=== PATIENT | female | born 1940 | race Caucasian/White ===

== ENCOUNTER 2017-01-26 11:16 | Emergency (ER) | payer OTHER ==
[~2017-01-26] VITALS: Ht 152.4 cm; Wt 63.5 kg
[~2017-01-26 11:16] MED LIST: FIORIC PO; HYDR-3533 PO; LEXA5TAB PO; LORA-392 PO; OMEP20TA39 PO; PRAV20TA PO
[2017-01-26 11:21] VITALS: BP 140/83; PULSE 89; RESP 18; TEMP 98.3; O2SAT 98
[2017-01-26] MEDS ORDERED: PRAV10TA PO (11:35)
[2017-01-26] MEDS ORDERED: PRIL20CA9 PO (11:35)
[2017-01-26] MEDS ORDERED: BUSP5TAB PO (11:40)
--- NOTE | 2017-01-26 12:08 | PD ---
HPI Chief Complaint: Musculoskeletal Complaint Time Seen by Provider: 12:05 Travel History International Travel<30 days: No Contact w/Intl Traveler<30days: No Traveled to known affect area: No History of Present Illness HPI 76-year-old female with a history of hyperlipidemia presents to the emergency department for evaluation of right foot and ankle pain for 4 days status post trip and fall. Patient states that she was walking in her front yard carrying to plants when she actually tripped over a tree root and somehow injured her right ankle and foot. Denies head trauma or loss of consciousness. States that she's had swelling and bruising in her right foot and ankle since this occurred. Pain has been aggravated with weightbearing. Improved with rest however she does have pain at rest. Denies any numbness or tingling, weakness, fever, chills, nausea, vomiting. Denies anticoagulation. She has been taking ibuprofen with minimal improvement of symptoms. No other complaints. 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) Musculoskeletal: Yes (RIGHT SHOULDER/POSSIBLY ROTOR CUFF) Immunizations Current: No Migraines: Yes Menopausal: Yes Past Surgical History Appendectomy: Yes Social History Alcohol Use: No Tobacco Use: No (Quit 23 years ago) Substance Use: No Allergies-Medications (Allergen,Severity, Reaction): Coded Allergies: Macrobid (Verified Allergy, Severe, rash, 01/26/17) Penicillin (Verified Allergy, Severe, "COULDN'T BREATHE", 01/26/17) Shellfish (Verified Allergy, Severe, "COULDN'T BREATHE", 01/26/17) Reported Meds & Prescriptions Reported Meds & Active Scripts Active Reported Buspirone (Buspirone HCl) 5 Mg Tab 5 Mg PO BID Pravastatin 10 Mg Tab 10 Mg PO DAILY Prilosec (Omeprazole) 20 Mg Cap 20 Mg PO DAILY Review of Systems Except as stated in HPI: all other systems reviewed are Neg Physical Exam Narrative GENERAL: Well-nourished and well-developed pleasant patient in no acute distress who is nontoxic appearing. SKIN: Warm and dry. HEAD: Normocephalic and atraumatic. EYES: No injection, drainage, or hyphema noted. PERRLA. EOMI. ENT: No nasal drainage noted. Oropharynx is clear. NECK: Supple and the trachea is midline. CARDIOVASCULAR: Regular rate and rhythm. RESPIRATORY: Breath sounds are equal bilaterally with no accessory muscle use, wheezing, rhonchi, or crackles. GASTROINTESTINAL: Abdomen is soft, non-tender, and nondistended. MUSCULOSKELETAL: The right ankle and foot is swollen with ecchymosis over her dorsal, medial and lateral aspects. Tenderness to palpation. DP pulses are 2+ bilaterally. The foot and toes are warm and well-perfused. Sensation to pain and light touch is intact. No obvious deformities or cyanosis is present throughout the upper and lower extremities. Patient has full range of motion without any signs of neurovascular compromise. NEUROLOGICAL: Awake, alert, and oriented. Normal speech and gait. Cranial nerves are grossly intact. Data Data Last Documented VS Vital Signs Date Time Temp Pulse Resp B/P Pulse Ox O2 Delivery O2 Flow Rate FiO2 01/26/17 11:21 98.3 89 18 140/83 98 Orders Ankle, Complete ([id number]) (01/26/17 12:04) Foot, Complete ([id number]) (01/26/17 12:04) Splint Or Brace Apply/Monitor (01/26/17 13:26) MDM Medical Decision Making Medical Screen Exam Complete: Yes Emergency Medical Condition: Yes Differential Diagnosis Fracture versus sprain versus contusion Narrative Course 76-year-old female presents to the emergency department for evaluation of right foot and ankle pain status post trip and fall over a root in her yard. No tremor loss of consciousness. Patient is afebrile, vital signs are stable. Patient's right lower extremity is neurovascularly intact. There is swelling and ecchymosis. X-ray imaging has been ordered and is pending. X-ray of the right foot shows degenerative changes but no acute abnormalities or fractures. X-ray of the right ankle is negative for any acute fracture or abnormality. The patient is placed in an Jagdeep wrap. She'll be given tramadol for pain. Discussed supportive care. Advised follow-up with her PCP. Patient verbalizes understanding and agreement with treatment plan. Diagnosis Primary Impression: Right foot sprain Qualified Code: S93.601A - Right foot sprain, initial encounter Referrals: Primary Care Physician Patient Instructions: Foot Sprain (ED), General Instructions Additional Instructions: Jagdeep wrap. Elevate. Rest. Apply ice for 20 minutes on, 20 minutes off. Take medication as prescribed. Do not take tramadol with alcohol or while driving. Follow-up with your Primary Care Physician. Return to the ED for any acute worsening of symptoms. Med/Other Pt SpecificInfo: Prescription(s) given Scripts Tramadol 50 Mg Tab50 Mg PO Q6H PRN (PAIN GREATER THAN 6) #20 TAB Ref 0 Prov:Eddie Flynn MD 01/26/17 Disposition: 01 DISCHARGE HOME Condition: Stable Ruby Berg Jan 26, 2017 12:08
--- NOTE | 2017-01-26 13:20 | RADHPO ---
EXAM DATE/TIME: 01/26/2017 12:30 [facility] COMPARISON: No previous studies available for comparison. INDICATIONS : Right foot pain/swelling/bruising post fall. MEDICAL HISTORY : Hypercholesterolemia. SURGICAL HISTORY : Appendectomy. Right shoulder. Right knee. Left ankle. ENCOUNTER: Initial ACUITY: 4 - 6 days PAIN SCORE: 7/10 LOCATION: Right foot FINDINGS: Three views of the right foot demonstrate no fracture or dislocation. The Lisfranc joint appears inta ct. 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 No soft tissue abnormality or radiopaque foreign body is identified. CONCLUSION: No acute right foot abnormality is identified. There is severe osteoarthritis at the first MTP joint. Az Huang MD on January 26, 2017 at 13:17 Board Certified Radiologist. This report was verified electronically.
--- NOTE | 2017-01-26 13:23 | RADHPO ---
EXAM DATE/TIME: 01/26/2017 12:26 [facility] COMPARISON: FOOT RIGHT COMPLETE ([id number]), January 26, 2017, 12:30. INDICATIONS : Right ankle pain/swelling/bruising post fall. MEDICAL HISTORY : Hypercholesterolemia. SURGICAL HISTORY : Appendectomy. Right shoulder. Right knee. Left ankle. ENCOUNTER: Initial ACUITY: 1 day PAIN SCORE: 7/10 LOCATION: Right ankle FINDINGS: There is moderate largely lateral soft tissue swelling without evidence of underlying fracture or dis location. Visualized hind foot appears intact. CONCLUSION: Soft tissue swelling. No definite fracture. Az Gonzalez MD on January 26, 2017 at 13:18 Board Certified Radiologist. This report was verified electronically.
[2017-01-26] MEDS ORDERED: TRAM50TA PO (13:27)
== END 2017-01-26 13:50 | disposition home or self-care (01) ==
LOC: PHEFT 11:16
DX: S93.601A Unspecified sprain of right foot, initial encounter (principal); W01.0XXA Fall on same level from slipping, tripping and stumbling without subsequent striking against object, initial encounter; Y93.01 Activity, walking, marching and hiking; Y92.017 Garden or yard in single-family (private) house as the place of occurrence of the external cause; Y99.8 Other external cause status
CPT/HCPCS: 73610; 73630; 99283

== ENCOUNTER 2018-07-12 15:33 | Observation (INO) ==
--- NOTE | 2018-07-12 16:05 | ED ---
HPI General Chief Complaint: Shortness of Breath/Dyspnea Stated Complaint: Sob Time Seen by Provider: 07/12/18 15:52 History of Present Illness The patient was seen and examined in the presence of the nurse. This patient has had dyspnea with exertion for a month. She has been working with her primary physician Dr. Barboza. She has had x-ray and EKG a couple of weeks ago she reports were negative. She had an appointment today and she was sent here to get stress testing. She does not have documented cardiac disease. However she is on cholesterol medication and an ex smoker. Has not had any chest pain or pressure or tightness or heaviness. Denies cough or fever. She is not short of breath now. No pleuritic symptoms. Severity is mild to moderate. It is worse with exertion. Symptoms alleviated with rest. Related Data Home Medications Medication Instructions Recorded Confirmed buspirone 5 mg PO BID 07/12/18 07/12/18 escitalopram oxalate [Lexapro] 20 mg PO DAILY 07/12/18 07/12/18 omeprazole magnesium [Prilosec OTC] 20 mg PO DAILY 07/12/18 07/12/18 pravastatin 1 tab PO DAILY 07/12/18 07/12/18 tramadol [Ultram] 50 mg PO Q4-6H PRN 07/12/18 07/12/18 Allergies Allergy/AdvReac Type Severity Reaction Status Date / Time nitrofurantoin Allergy Severe rash Verified 07/12/18 15:48 penicillin G Allergy Severe "COULDN'T Verified 07/12/18 15:48 BREATHE" shellfish derived Allergy Severe "COULDN'T Verified 07/12/18 15:48 BREATHE" Review of Systems ROS: all other systems reviewed are negative PMFSH Medical History Medical History Anxiety (Acute) Arthritis (Acute) Depression (Acute) Hiatal hernia (Acute) High cholesterol (Acute) Surgical History Surgical History History of ankle surgery (Acute) Social History Social History Substance History: No History of Abuse Second Hand Smoke Exposure: No Smoking Status: Former smoker How Often Do You Have a Drink Containing Alcohol: Never Recent Travel in [facility] within the Last 8 Weeks: No Recent Out of Country Travel within the Last 8 Weeks: No Immunization History Tetanus Immunization: Unsure Hx Influenza Vaccine This Season: No Exam Narrative Exam Narrative: GENERAL: Well-nourished, well-developed patient in no apparent distress. SKIN: Focused skin assessment reveals no rash and nodules. Skin is Warm and dry. HEAD: Atraumatic. Normocephalic. EYES: Pupils equal and round. No scleral icterus. No injection or drainage. ENT: No nasal bleeding or discharge. Mucous membranes pink and moist. NECK: Trachea midline. No JVD. CARDIOVASCULAR: Regular rate and rhythm. No murmur appreciated. RESPIRATORY: No accessory muscle use. Clear to auscultation. Breath sounds equal bilaterally. GASTROINTESTINAL: Abdomen soft, non-tender, nondistended. Hepatic and splenic margins not palpable. MUSCULOSKELETAL: No obvious deformities. No clubbing. No cyanosis. No edema. NEUROLOGICAL: Awake and alert. No obvious cranial nerve deficits. Motor grossly within normal limits. Normal speech. PSYCHIATRIC: Appropriate mood and affect; insight and judgment normal. Course Initial Documented Vital Signs Temperature 97.7 F 07/12/18 15:35 Pulse Rate 112 H 07/12/18 15:35 Respiratory Rate 18 07/12/18 15:35 Blood Pressure 151/85 H 07/12/18 15:35 Pulse Oximetry 97 07/12/18 15:35 Last Documented Vital Signs Temperature 97.7 F 07/12/18 15:35 Pulse Rate 86 07/12/18 15:58 Respiratory Rate 18 07/12/18 15:58 Blood Pressure 150/79 H 07/12/18 15:58 Pulse Oximetry 97 07/12/18 16:09 Medical Decision Making MDM Narrative Medical decision making narrative: Initial ER workup is normal including labs and chest x-ray and EKG. She had an aspirin today. She is currently symptom- free. She does have multiple risk factors including elevated cholesterol and ex -smoker and age. Her physician wanted her in for stress testing. I have placed a call to the hospitalist to discuss for 23-hour observation in the chest pain center. Medical Screen Exam Complete: Yes Emergency Medical Condition: Yes Differential Diagnosis Differential Diagnosis: COPD, pneumonia, anginal variant Medical Records Medical records reviewed: Yes I reviewed the patient's medical records. Lab Data Lab results reviewed: Yes I reviewed the patient's lab results. Lab results narrative: Studies are normal including cardiac enzymes Result diagrams: 07/12/18 16:10 07/12/18 16:10 Lab Results 07/12/18 07/12/18 Range/Units 16:10 16:10 CBC w Diff Auto diff final WBC 6.5 (4.0-11.0) th/mm3 RBC 4.15 (4.00-5.30) mil/mm3 Hgb 12.8 (11.6-15.3) gm/dL Hct 37.8 (35.0-46.0) % MCV 91.3 (80.0-100.0) fL MCH 30.8 (27.0-34.0) pg MCHC 33.8 (32.0-36.0) % RDW 13.4 (11.6-17.2) % Plt Count 280 (150-450) th/mm3 MPV 8.2 (7.0-11.0) fL Neut % (Auto) 62.7 (16.0-70.0) % Lymph % (Auto) 23.8 (9.0-44.0) % [place] % (Auto) 10.1 H (0.0-8.0) % Eos % (Auto) 2.8 (0.0-4.0) % Baso % (Auto) 0.6 (0.0-2.0) % Neut # (Auto) 4.1 (1.8-7.7) th/mm3 Lymph # (Auto) 1.5 (1.0-4.8) th/mm3 [place] # (Auto) 0.7 (0.0-0.9) th/mm3 Eos # (Auto) 0.2 (0.0-0.4) th/mm3 Baso # (Auto) 0.0 (0.0-0.2) th/mm3 WBC Differential . Differential Comment . Sodium 142 (136-145) meq/L Potassium 3.6 (3.5-5.1) meq/L Chloride 105 (98-107) meq/L Carbon Dioxide 27.1 (21.0-32.0) meq/L Anion Gap 10 (5-15) meq/L BUN 17 (7-18) mg/dL Creatinine 1.00 (0.50-1.00) mg/dL Estimated GFR 54 L (>89) mL/min Random Glucose 96 (74-106) mg/dL Calcium 8.8 (8.5-10.1) mg/dL Total Bilirubin 0.2 (0.2-1.0) mg/dL AST 18 (15-37) U/L ALT 20 (10-53) U/L Alkaline Phosphatase 93 (45-117) U/L Total Creatine Kinase 76 (26-192) U/L Troponin I Less than 0.02 L (0.02-0.05) ng/mL Total Protein 7.4 (6.4-8.2) g/dL Albumin 3.8 (3.4-5.0) g/dL Imaging Data Attestation: I personally reviewed and interpreted this imaging study as follows : My impression: Chest x-ray is normal Radiologist's impression: Chest X-Ray 07/12/18 16:03 CONCLUSION: No acute cardiopulmonary findings identified. ECG Data EKG Prior to Arrival: No Attestation: I personally reviewed and interpreted this ECG as follows: Prior ECG tracings: not available for review Interpretation: EKG reveals sinus rhythm. The SC interval is normal. There are no ST elevations. Heart rate is normal Discharge Plan Discharge Disposition Patient Disposition: 30 Still Patient Discharge Details Diagnosis: BOUDREAUX (dyspnea on exertion) Physicians Team ED Provider: Maicol De La Rosa Primary Care Provider: Bret Barboza Rxs /Orders / Referrals /Forms Prescriptions: No Action buspirone 5 mg Tablet 5 mg PO BID RF: 0 tramadol [Ultram] 50 mg Tablet 50 mg PO Q4-6H PRN (Reason: Pain) RF: 0 pravastatin 20 mg Tablet 1 tab PO DAILY RF: 0 escitalopram oxalate [Lexapro] 20 mg Tablet 20 mg PO DAILY RF: 0 omeprazole magnesium [Prilosec OTC] 20 mg Tablet,Delayed Release (Dr/Ec) 20 mg PO DAILY RF: 0 Discharge Interventions Interventions: Vital Signs Last Done: 07/12/18 15:58 Status ED Status: With Doctor
[2018-07-12 16:16] LABS: Baso % (Auto) 0.6 % (0.0-2.0); Eos # (Auto) 0.2 th/mm3 (0.0-0.4); Eos % (Auto) 2.8 % (0.0-4.0); Hematocrit 37.8 % (35.0-46.0); Hemoglobin 12.8 gm/dL (11.6-15.3); Lymph # (Auto) 1.5 th/mm3 (1.0-4.8); Lymph % (Auto) 23.8 % (9.0-44.0); Mean Corpuscular HGB Conc 33.8 % (32.0-36.0); Mean Corpuscular Hemoglobin 30.8 pg (27.0-34.0); Mean Corpuscular Volume 91.3 fL (80.0-100.0); Mean Platelet Volume 8.2 fL (7.0-11.0); Mono # (Auto) 0.7 th/mm3 (0.0-0.9); Mono % (Auto) 10.1 % (0.0-8.0); Neut # (Auto) 4.1 th/mm3 (1.8-7.7); Neut % (Auto) 62.7 % (16.0-70.0); Platelet Count 280 th/mm3 (150-450); Red Blood Count 4.15 mil/mm3 (4.00-5.30); Red Cell Distribution Width 13.4 % (11.6-17.2); White Blood Count 6.5 th/mm3 (4.0-11.0)
[2018-07-12 16:21] LABS: Chloride 105 meq/L (98-107); Potassium 3.6 meq/L (3.5-5.1); Sodium 142 meq/L (136-145)
[2018-07-12 16:24] LABS: Calcium 8.8 mg/dL (8.5-10.1)
[2018-07-12 16:25] LABS: Albumin 3.8 g/dL (3.4-5.0); Anion Gap 10 meq/L (5-15); Blood Urea Nitrogen 17 mg/dL (7-18); Carbon Dioxide 27.1 meq/L (21.0-32.0); Glucose,Random 96 mg/dL (74-106)
--- NOTE | 2018-07-12 16:27 | XR ---
EXAM DATE: 07/12/2018 4:03 PM EDT AGE/SEX: 77 years / Female INDICATIONS: Chest pain. CLINICAL DATA: This is the patient's initial encounter. Patient reports that signs and symptoms have been present for 2 weeks and indicates a pain score of 5/10. MEDICAL/SURGICAL HISTORY: Hypercholesterolemia. . Appendectomy. Right shoulder. Right knee. Lef t ankle. COMPARISON: POI, XR CHEST PA AND LAT, 06/28/2018. . FINDINGS: The heart is at the upper limits of normal in size. The lungs are clear. The visualized bony structur es are grossly intact. The exam is unchanged compared to previous dated 06/28/2018. CONCLUSION: No acute cardiopulmonary findings identified. Electronically signed by: Miki Rivers MD 07/12/2018 4:25 PM EDT
[2018-07-12 16:28] LABS: Alanine Aminotransferase 20 U/L (10-53); Aspartate Aminotransferase 18 U/L (15-37); Glomerular Filtration Rate 54 mL/min (>89)
[2018-07-12 16:29] LABS: Total Protein 7.4 g/dL (6.4-8.2)
[2018-07-12 16:31] LABS: Alkaline Phosphatase 93 U/L (45-117)
[2018-07-12 16:41] LABS: Creatine Kinase 76 U/L (26-192)
[2018-07-12] MEDS ORDERED: Morphine Inj 4 MG/ML Vial IV.PUSH PRN (17:37)
[2018-07-12] MEDS ORDERED: Acetaminophen 500 MG Tablet PO PRN (17:37)
--- NOTE | 2018-07-12 17:52 | P.HP ---
History of Present Illness Primary Care Physician: Bret Barboza MD Chief Complaint: Shortness of breath History of Present Illness: 77-year-old female with known history of hyperlipidemia, hiatal hernia , arthritis who presented the hospital for evaluation of shortness of breath. Patient states that she has been experiencing dyspnea on exertion, shortness of breath for at least a month. She indicates that 2 weeks ago she started workup with her primary medical doctor which included chest x-ray and EKG which were unremarkable per the patient. She indicates that her prior medical doctor was referring her to a cable armorer operator for further evaluation and stress testing. However she has not heard anything back from the cable armorer operator at this time. Patient was out with her grandson and got short of breath and felt very uncomfortable so she came to the hospital for evaluation. Patient denies any chest pain, diaphoresis, she did experience some lightheadedness and dizziness with her shortness of breath today while she was with her grandson. She indicates that she has had a stress test approximately 10 years ago which was unremarkable. Patient has not had any pulmonary workup in the outpatient setting thus far. Patient also states that since December she has gained about 20 pounds which she also has a hiatal hernia. She states that she has been experiencing worsening shortness of breath since the increase weight gain. She is concerned that maybe the hiatal hernia can also be causing her shortness of breath and dyspnea. It was recommended by ER physician the patient be observed in the hospital with chest pain center for further evaluation and management. - Diagnosis (1) BOUDREAUX (dyspnea on exertion) Review of Systems All other systems reviewed negative except as stated in HPI Respiratory: Reports shortness of breath, Reports shortness of breath with activity PMFSH - History History Provided By: Patient - Medical History Medical History: Medical History (Last Reviewed 07/12/18 @ 17:42 by RICHY Mann) Anxiety Arthritis Depression Hiatal hernia High cholesterol - Surgical History Surgical History: Surgical History (Last Updated 07/13/18 @ 07:46 by RICHY Mann) History of ankle surgery History of right knee surgery - Family History Family History: Family History (Last Updated 07/12/18 @ 17:45 by RICHY Mann) Mother History of heart disease Father History of throat cancer - Tobacco History Second Hand Smoke Exposure: No Tobacco Use In Past 30 Days: No Smoking Status: Former smoker - Alcohol History How Often Do You Have a Drink Containing Alcohol: Never - Substance Use History Substance History: No History of Abuse - Travel History Recent Travel in the [place] Within the Last 8 Weeks: No Recent Travel Out of the Country Within the Last 8 Weeks: No - Immunization History Tetanus Immunization: Unsure Hx Influenza Vaccine This Season: No Medications and Allergies Active Medications: Active Medications Sodium Chloride (Ns Flush) 2 ml IV.FLUSH UNSCH PRN PRN Reason: FLUSH AFTER USING IV ACCESS Allergies Allergy/AdvReac Type Severity Reaction Status Date / Time nitrofurantoin Allergy Severe rash Verified 07/12/18 15:48 penicillin G Allergy Severe "COULDN'T Verified 07/12/18 15:48 BREATHE" shellfish derived Allergy Severe "COULDN'T Verified 07/12/18 15:48 BREATHE" Home Medications Medication Instructions Recorded Confirmed Type buspirone 5 mg PO BID 07/12/18 07/12/18 History escitalopram oxalate [Lexapro] 20 mg PO DAILY 07/12/18 07/12/18 History omeprazole magnesium [Prilosec OTC] 20 mg PO DAILY 07/12/18 07/12/18 History pravastatin 1 tab PO DAILY 07/12/18 07/12/18 History tramadol [Ultram] 50 mg PO Q4-6H PRN 07/12/18 07/12/18 History Exam Vital signs: Vital Signs 07/12/18 15:35 07/12/18 15:58 07/12/18 16:09 Temperature 97.7 F Pulse Rate 112 H 86 Respiratory Rate 18 18 Blood Pressure 151/85 H 150/79 H Pulse Oximetry 97 97 97 07/12/18 17:03 Temperature Pulse Rate 83 Respiratory Rate 18 Blood Pressure 147/91 H Pulse Oximetry 94 L Intake & Output 07/11/18 07/12/18 07/12/18 18:59 06:59 18:59 Weight 70 kg Narrative: GENERAL: Well-developed, well-nourished, in no acute distress. alert and orientated HEENT: Head is normocephalic without any lesions or masses noted. Facial features are symmetric. Eyes: Pupils equal round reactive to light. Extraocular muscles are intact. Conjunctivae were clear. Oropharyngeal: Pharynx without any erythema edema. Tongue is midline without deviation. Buccal mucosa is moist without any masses or lesions NECK: Supple without any masses. Trachea midline no deviation. No JVD, no bruits are appreciated CARDIAC: Regular rhythm, regular rate. S1/S2 are heard. No murmurs gallops or rubs. LUNGS: Clear to auscultation bilaterally. No wheeze, rhonchi or rales. No use of accessory muscles on inspiration or expiration. ABDOMEN: Soft, nontender. Nondistended. Bowel sounds heard in all 4 quadrants. No organomegaly or masses. Negative rebound, negative guarding EXTREMITIES: No edema, pulses are equal bilaterally. No cyanosis or clubbing NEUROLOGY: Mood and affect appear appropriate. Cranial nerves II through XII grossly intact. Muscle strength 5/5 in upper and lower extremities bilaterally. Deep tendon reflexes are 2+ in upper and lower extremities bilaterally. Results - Labs CBC & Chem 7: 07/12/18 16:10 07/12/18 16:10 Labs: Laboratory Results - last 24 hr 07/12/18 07/12/18 16:10 16:10 CBC w Diff Auto diff final WBC 6.5 RBC 4.15 Hgb 12.8 Hct 37.8 MCV 91.3 MCH 30.8 MCHC 33.8 RDW 13.4 Plt Count 280 MPV 8.2 Neut % (Auto) 62.7 Lymph % (Auto) 23.8 [place] % (Auto) 10.1 H Eos % (Auto) 2.8 Baso % (Auto) 0.6 Neut # (Auto) 4.1 Lymph # (Auto) 1.5 [place] # (Auto) 0.7 Eos # (Auto) 0.2 Baso # (Auto) 0.0 WBC Differential . Differential Comment . Sodium 142 Potassium 3.6 Chloride 105 Carbon Dioxide 27.1 Anion Gap 10 BUN 17 Creatinine 1.00 Estimated GFR 54 L Random Glucose 96 Calcium 8.8 Total Bilirubin 0.2 AST 18 ALT 20 Alkaline Phosphatase 93 Total Creatine Kinase 76 Troponin I Less than 0.02 L Total Protein 7.4 Albumin 3.8 - Imaging Impressions Chest X-Ray 07/12/18 16:03 CONCLUSION: No acute cardiopulmonary findings identified. Caprini VTE Risk Assessment Caprini VTE Risk Assessment: No/Low Risk (score <= 1) Caprini Risk Assessment Model: Point Value = 1 Point Value = 2 Point Value = 3 Point Value = 5 Age 41-60 Minor surgery BMI > 25 kg/m2 Swollen legs Varicose veins or History of unexplained or recurrent spontaneous Oral contraceptives or hormone replacement Sepsis (< 1 month) Serious lung disease, including pneumonia (< 1 month) Abnormal pulmonary function Acute myocardial infarction Congestive heart failure (< 1 month) History of inflammatory bowel disease Medical patient at bed rest Age 61-74 Arthroscopic surgery Major open surgery (> 45 min) Laparoscopic surgery (> 45 min) Malignancy Confined to bed (> 72 hours) Immobilizing plaster cast Central venous access Age >= 75 History of VTE Family history of VTE Factor V Leiden Prothrombin [id number] Lupus anticoagulant Anticardiolipin antibodies Elevated serum homocysteine Heparin-induced thrombocytopenia Other congenital or acquired thrombophilia Stroke (< 1 month) Elective arthroplasty Hip, pelvis, or leg fracture Acute spinal cord injury (< 1 month) Prophylaxis Regimen: Total Risk Factor Score Risk Level Prophylaxis Regimen 0-1 Low Early ambulation 2 Moderate Order ONE of the following: *Sequential Compression Device (SCD) *Heparin 5000 units SQ BID 3-4 Higher Order ONE of the following medications: *Heparin 5000 units SQ TID *Enoxaparin/Lovenox 40 mg SQ daily (WT < 150 kg, CrCl > 30 mL/min) *Enoxaparin/Lovenox 30 mg SQ daily (WT < 150 kg, CrCl > 10-29 mL/min) *Enoxaparin/Lovenox 30 mg SQ BID (WT < 150 kg, CrCl > 30 mL/min) AND/OR *Sequential Compression Device (SCD) 5 or more Highest Order ONE of the following medications: *Heparin 5000 units SQ TID (Preferred with Epidurals) *Enoxaparin/Lovenox 40 mg SQ daily (WT < 150 kg, CrCl > 30 mL/min) *Enoxaparin/Lovenox 30 mg SQ daily (WT < 150 kg, CrCl > 10-29 mL/min) *Enoxaparin/Lovenox 30 mg SQ BID (WT < 150 kg, CrCl > 30 mL/min) AND *Sequential Compression Device (SCD) Assessment and Plan - Assessment (1) BOUDREAUX (dyspnea on exertion) Code(s): R06.09 - Other forms of dyspnea Status: Acute - Plan Dyspnea on exertion, possible angina variant -Patient with risk factors include age, hyperlipidemia, history of tobacco use, family history of heart disease -We will need to continue ruled the patient out for acute coronary event with serial cardiac enzymes and serial EKGs -We will obtain d-dimer to rule out embolic event, if testing is positive then we will need to pursue pulmonary angiogram -Original EKG shows sinus rhythm without any ST elevations or depressions. -We will anticipate performing myocardial perfusion study in the morning if patient been ruled out for acute coronary event -Continue aspirin, nitroglycerin as needed -Continue monitor telemetry Hyperlipidemia -Continue home medications DVT prevention -Sequential compression devices
[2018-07-12 20:02] LABS: Creatine Kinase 112 U/L (26-192)
[2018-07-12 21:31] VITALS: RESP 18
[2018-07-12 22:45] LABS: Creatine Kinase 173 U/L (26-192)
[2018-07-13 05:21] VITALS: O2SAT 96
--- NOTE | 2018-07-13 08:06 | P.PN ---
Subjective Interval history: 77-year-old female who is seen and examined today for follow-up on shortness of breath, dyspnea on exertion. Patient states that she has not had any recurrence of shortness of breath or dyspnea. Patient laying in bed comfortable. Denies any new complaints. Vital signs are stable. Patient remains afebrile. Physical Exam Vital signs: Vital Signs 07/12/18 15:35 07/12/18 15:58 07/12/18 16:09 Temperature 97.7 F Pulse Rate 112 H 86 Respiratory Rate 18 18 Blood Pressure 151/85 H 150/79 H Pulse Oximetry 97 97 97 07/12/18 17:03 07/12/18 17:52 07/12/18 18:40 Temperature 98.7 F Pulse Rate 83 84 82 Respiratory Rate 18 18 20 Blood Pressure 147/91 H 136/84 145/81 H Pulse Oximetry 94 L 94 L 95 07/12/18 19:30 07/12/18 20:00 07/13/18 00:00 Temperature 97.9 F 97.5 F L Pulse Rate 66 69 Respiratory Rate 18 18 Blood Pressure 145/78 H 135/76 Pulse Oximetry 97 95 93 L 07/13/18 04:00 Temperature 97.1 F L Pulse Rate 69 Respiratory Rate 18 Blood Pressure 133/83 Pulse Oximetry 96 Intake & Output 07/12/18 07/13/18 07/13/18 18:59 06:59 18:59 Intake Total 0 / 0 Balance 0 / 0 Weight 69.6 kg 69.8 kg Intake: Oral 0 / 0 Other: # Voids 2 Weight On Admission 70 kg Narrative: GENERAL: Well-developed, well-nourished, in no acute distress. alert and orientated HEENT: Head is normocephalic without any lesions or masses noted. Facial features are symmetric. Eyes: Extraocular muscles are intact. Conjunctivae were clear. NECK: Supple without any masses. Trachea midline no deviation. No JVD, CARDIAC: Regular rhythm, regular rate. S1/S2 are heard. No murmurs gallops or rubs. LUNGS: Clear to auscultation bilaterally. No wheeze, rhonchi or rales. No use of accessory muscles on inspiration or expiration. ABDOMEN: Soft, nontender. Nondistended. Bowel sounds heard in all 4 quadrants. No organomegaly or masses. Negative rebound, negative guarding EXTREMITIES: No edema, pulses are equal bilaterally. No cyanosis or clubbing NEUROLOGY: Mood and affect appear appropriate. Cranial nerves II through XII grossly intact. Moving all extremities, speech is clear Results - Labs CBC & Chem 7: 07/12/18 16:10 07/12/18 16:10 Laboratory Results - last 24 hr 07/12/18 07/12/18 07/12/18 16:10 16:10 16:10 CBC w Diff Auto diff final WBC 6.5 RBC 4.15 Hgb 12.8 Hct 37.8 MCV 91.3 MCH 30.8 MCHC 33.8 RDW 13.4 Plt Count 280 MPV 8.2 Neut % (Auto) 62.7 Lymph % (Auto) 23.8 [place] % (Auto) 10.1 H Eos % (Auto) 2.8 Baso % (Auto) 0.6 Neut # (Auto) 4.1 Lymph # (Auto) 1.5 [place] # (Auto) 0.7 Eos # (Auto) 0.2 Baso # (Auto) 0.0 WBC Differential . Differential Comment . D-Dimer Quant (PE/DVT) 1.19 H Sodium 142 Potassium 3.6 Chloride 105 Carbon Dioxide 27.1 Anion Gap 10 BUN 17 Creatinine 1.00 Estimated GFR 54 L Random Glucose 96 Calcium 8.8 Total Bilirubin 0.2 AST 18 ALT 20 Alkaline Phosphatase 93 Total Creatine Kinase 76 Troponin I Less than 0.02 L Total Protein 7.4 Albumin 3.8 07/12/18 07/12/18 19:15 22:15 CBC w Diff WBC RBC Hgb Hct MCV MCH MCHC RDW Plt Count MPV Neut % (Auto) Lymph % (Auto) [place] % (Auto) Eos % (Auto) Baso % (Auto) Neut # (Auto) Lymph # (Auto) [place] # (Auto) Eos # (Auto) Baso # (Auto) WBC Differential Differential Comment D-Dimer Quant (PE/DVT) Sodium Potassium Chloride Carbon Dioxide Anion Gap BUN Creatinine Estimated GFR Random Glucose Calcium Total Bilirubin AST ALT Alkaline Phosphatase Total Creatine Kinase 112 173 Troponin I Less than 0.02 L Less than 0.02 L Total Protein Albumin - Imaging Impressions Chest X-Ray 07/12/18 16:03 CONCLUSION: No acute cardiopulmonary findings identified. Chest X-Ray 07/12/18 16:03 CONCLUSION: No acute cardiopulmonary findings identified. Chest CTA 07/13/18 00:00 CONCLUSION: 1. No PE is identified. Additionally, no pulmonary abnormality is seen to explain the shortness of breath. 2. Large hiatal hernia. Myocardial Perfusion Scan Nuc Med 07/13/18 06:00 CONCLUSION: 1. No definite fixed or reversible perfusion defect is identified. 2. Left ventricle wall motion and ejection fraction are within normal limits. Assessment and Plan - Assessment (1) BOUDREAUX (dyspnea on exertion) Code(s): R06.09 - Other forms of dyspnea Status: Acute - Plan Dyspnea on exertion, possible angina variant -Patient with risk factors include age, hyperlipidemia, history of tobacco use, family history of heart disease -Patient has been ruled out for acute coronary event with serial cardiac enzymes have remained negative -Serial EKGs were performed and reviewed by myself that showed normal sinus rhythm with nonspecific T wave changes -D-dimer was positive, pulmonary angiogram was performed with did not indicate any pulmonary emboli or any etiology that would explain the patient's dyspnea and shortness of breath -Myocardial perfusion study was performed and indicated no signs of ischemia, low risk -Continue aspirin, nitroglycerin as needed -Continue monitor telemetry Hyperlipidemia -Continue home medications DVT prevention -Sequential compression devices Discharge Planning: Discharge home in stable condition Activity: Ad marti. Diet: Healthy heart diet Medication per medication reconciliation Follow-up with primary medical doctor in 1 week
[2018-07-13 08:59] VITALS: BP 138/80; PULSE 68; TEMP 98.5
[2018-07-13] MEDS ORDERED: Aspirin 325 MG Tablet PO SCH (09:00)
[2018-07-13] MEDS ORDERED: Pantoprazole Sodium 20 MG DR Tablet PO SCH (09:00)
--- NOTE | 2018-07-13 09:13 | CT ---
EXAM DATE: 07/13/2018 8:00 AM EDT AGE/SEX: 77 years / Female INDICATIONS: Short of breath. Dyspnea with exertion x 1 month. CLINICAL DATA: This is the patient's initial encounter. Patient reports that signs and symptoms have been present for 1 month and indicates a pain score of 0/10. MEDICAL/SURGICAL HISTORY: Hiatal hernia. None. RADIATION DOSE: 11.14 CTDI (mGy) COMPARISON: [facility], CHEST 1V SINGLE AP, 07/12/2018. . TECHNIQUE: Volumetric scanning was performed using a multi-row detector CT scanner during bolus infu nellie of 75 ml Omnipaque 350 (iohexol) nonionic water-soluble contrast as a single exam dose. The jesse a was post processed with a variety of visualization algorithms including full volume maximum intensi ty projection and sliding thin slab reformation. Using automated exposure control and adjustment of the mA and/or kV according to patient size, radiation dose was kept as low as reasonably achievable t o obtain optimal diagnostic quality images. DICOM format image data is available electronically for review and comparison. FINDINGS: Pulmonary Arteries: No filling defect is identified through the segmental and some of the subsegmenta l level pulmonary arteries. Lungs: No consolidation or pneumothorax is identified. There is mild compressive atelectasis in the left lower lobe adjacent to the hiatal hernia. Mediastinum: The heart and great vessels demonstrate no acute abnormality. No lymphadenopathy is vis ualized. There is moderate atherosclerotic disease of the aorta. The descending thoracic aorta is tor tuous. Pleurae: No pleural effusion or pleural thickening. Axillae: No lymphadenopathy. Musculoskeletal: No acute osseous abnormality is identified. There are degenerative changes of the t horacic spine. Other: Visualized upper abdominal structures demonstrate no acute abnormality. A large paraesophagea l hiatal hernia is present. 8 mm low-density lesion in the left lobe of the liver has density measure ments characteristic of a simple cyst. CONCLUSION: 1. No PE is identified. Additionally, no pulmonary abnormality is seen to explain the shortness of b reath. 2. Large hiatal hernia. Electronically signed by: Az Huang MD 07/13/2018 9:12 AM EDT
[2018-07-13] MEDS ORDERED: Regadenoson Inj 0.4 MG/5 ML Syringe IV.PUSH ONE (09:38)
--- NOTE | 2018-07-13 10:50 | NM ---
EXAM DATE: 07/13/2018 9:38 AM EDT AGE/SEX: 77 years / Female INDICATIONS:Angina. . Shortness of breath with chest pressure for two weeks. CLINICAL DATA: This is the patient's initial encounter. Patient reports that signs and symptoms have been present for 1 day and indicates a pain score of 2/10. MEDICAL/SURGICAL HISTORY: None. Umbilical hernia repair. COMPARISON: No prior exams available for comparison. No external comparison. DOSE: 8.7 mCi Tc 99m Myoview at rest 26.5 mCi [id number] at stress 0.4 mg Lexiscan STRESS SYMPTOMS: Short of breath. EJECTION FRACTION: 64 % TECHNIQUE: The patient underwent pharmacologic stress with infusion of prescribed dose. Continuous ECG tracing was monitored during stress. Gated SPECT imaging was performed after stress and conventi onal SPECT imaging was performed at rest. The examination was performed on a SPECT/CT scanner, both attenuation and non-corrected datasets were reviewed. FINDINGS: Distribution: The maximum perfused segment at stress is in the anterolateral wall. Perfusion Study: The pattern of perfusion at stress is within normal limits. No significant fixed o r reversible perfusion defect is identified. SSS =0. Gated Study: There are intact wall motion and wall thickening without hypokinetic or dyskinetic segm ents. The ejection fraction is calculated at 64%. RISK CATEGORY: Low (<1% Annual Motality Rate) CONCLUSION: 1. No definite fixed or reversible perfusion defect is identified. 2. Left ventricle wall motion and ejection fraction are within normal limits. Electronically signed by: Az Huang MD 07/13/2018 10:49 AM EDT
--- NOTE | 2018-07-13 12:22 | TR ---
Date Performed: 07/13/2018 Time Performed: 09:59:31 DOCTOR: Isaac Rivas DRUG LIST: CLINICAL HISTORY: ANGINA REASON FOR TEST: Angina REASON FOR ENDING: OBSERVATION: CONCLUSION: COMMENTS: Lexiscan stress test was performed under standard four minute protocol. Radionuclide was injected one minute prior to ending the test. No electrocardiographic abormalities were present t o suggest ischemia. Nuclear imaging and interpretation are pending.
--- NOTE | 2018-07-13 15:16 | ECG ---
Date Performed: 07/12/2018 Time Performed: 16:11:04 PTAGE: 77 years EKG: Sinus rhythm BORDERLINE LEFT AXIS DEVIATION MINIMAL VOLTAGE CRITERIA FOR LVH, CONSIDER NORMAL VARIANT NONSPECIFIC T-WAVE ABNORMALITY BORDERLINE ECG NO PREVIOUS TRACING DOCTOR: Michelle Kwong Interpretating Date/Time 07/13/2018 15:10:51
--- NOTE | 2018-07-13 15:27 | ECG ---
Date Performed: 07/12/2018 Time Performed: 22:13:14 PTAGE: 77 years EKG: Sinus rhythm BORDERLINE LEFT AXIS DEVIATION NONSPECIFIC T-WAVE ABNORMALITY BORDERLINE ECG Since the PREVIOUS TRACING , no significant change noted PREVIOUS TRACIN07/12/2018 19.15 DOCTOR: Michelle Kwong Interpretating Date/Time 07/13/2018 15:19:17
--- NOTE | 2018-07-13 15:27 | ECG ---
Date Performed: 07/12/2018 Time Performed: 19:15:11 PTAGE: 77 years EKG: Sinus rhythm BORDERLINE LEFT AXIS DEVIATION MINIMAL VOLTAGE CRITERIA FOR LVH, CONSIDER NORMAL VARIANT NONSPECIFIC ST & T-WAVE ABNORMALITY BORDERLINE ECG Since the PREVIOUS TRACING , no significant change noted PREVIOUS TRACIN07/12/2018 16.11 DOCTOR: Michelle Kwong Interpretating Date/Time 07/13/2018 15:19:07
== END 2018-07-13 11:31 | disposition home or self-care (01) ==
LOC: PHED 15:33 → PHEDA 15:33 → PH3 18:01
PROVIDERS: ADMIT Hospitalist; ATTEND Hospitalist